=== PATIENT | male | born 1995 | race Caucasian/White ===

== ENCOUNTER 2017-04-14 11:41 | Inpatient (IN) | payer OTHER ==
[~2017-04-14] VITALS: Ht 172.7 cm; Wt 81.4 kg
[2017-04-14 13:14] LABS: HEMATOCRIT 37.8 % (38.0-50.0); HEMOGLOBIN 13.1 G/DL (12.5-16.6); MCH 26.8 PG (29.0-34.0); MCHC 34.7 G/DL (30.0-36.0); MCV 77.3 FL (86-99); PLATELET COUNT 277 K/uL (156-360); RBC DIS.WIDTH-CV 13.2 % (11.8-14.6); RBC DIS.WIDTH-SD 36.7 % (39-53); RED BLOOD COUNT 4.89 M/uL (4.00-5.50); WHITE BLOOD COUNT 13.4 K/uL (4.1-10.2)
[2017-04-14 13:26] LABS: ALBUMIN 3.7 g/dL (3.2-4.8)
[2017-04-14 13:27] LABS: CHLORIDE 100 mEq/L (99-109); POTASSIUM 3.9 mEq/L (3.7-5.4); SODIUM 137 mEq/L (136-147)
[2017-04-14 13:29] LABS: GLUCOSE 107 mg/dL (70-99); TOTAL PROTEIN 6.7 g/dL (6.4-8.3)
[2017-04-14 13:31] LABS: TOTAL BILIRUBIN 0.8 mg/dL (0.0-1.0)
[2017-04-14 13:32] LABS: ALKALINE PHOSPHATASE 79 IU/L (3-129)
[2017-04-14 13:33] LABS: GFR ESTIMATE (CALCULATED) > 59 mL/min/ (58.99-99999)
[2017-04-14 13:34] LABS: AST (GOT) 12 IU/L (2-34); UREA NITROGEN (BUN) 8 mg/dL (9-23)
[2017-04-14 13:35] LABS: ALT (GPT) 14 IU/L (3-49)
[2017-04-14 15:40] LABS: APPEARANCE SL.HAZY ((CLEAR)); BILIRUBIN NEGATIVE; BLOOD NEGATIVE; COLOR YELLOW ((YELLOW)); GLUCOSE (STRIP) NEGATIVE; KETONES 80; LEUKOCYTES NEGATIVE; NITRITE NEGATIVE; PROTEIN (STRIP) 30; SPECIFIC GRAVITY 1.018 (1.000-1.030); UROBILINOGEN 0.2 MG/DL (0.2-1.0)
[2017-04-14 15:42] LABS: BACTERIA RARE /HPF; EPITHELIAL CELLS NONE SEEN /HPF; MUCUS 2+ /LPF; RED BLOOD CELLS 0-5 /HPF (0-5); UCUL ADDED? YES
[2017-04-14 21:23] VITALS: BP 140/70
[2017-04-14 23:48] VITALS: BP 127/68
[2017-04-15 06:18] LABS: HEMATOCRIT 33.9 % (38.0-50.0); HEMOGLOBIN 11.3 G/DL (12.5-16.6); MCHC 33.3 G/DL (30.0-36.0); MCV 77.9 FL (86-99); PLATELET COUNT 230 K/uL (156-360); RBC DIS.WIDTH-SD 37.1 % (39-53); RED BLOOD COUNT 4.35 M/uL (4.00-5.50); WHITE BLOOD COUNT 9.8 K/uL (4.1-10.2)
[2017-04-15 06:39] LABS: CHLORIDE 102 MEQ/L (99-109); GFR ESTIMATE (CALCULATED) > 59 mL/min/ (58.99-99999); GLUCOSE 97 mg/dL (70-99); POTASSIUM 3.9 MEQ/L (3.7-5.4); SODIUM 138 MEQ/L (136-147); UREA NITROGEN (BUN) 8 mg/dL (9-23)
[2017-04-15 08:36] VITALS: BP 123/65
[2017-04-15 09:48] LABS: ERTH.SED.RATE 27 MM/HR (0-15)
[2017-04-15 16:06] VITALS: BP 131/71
[2017-04-16] VITALS: BP 125/71
[2017-04-16 00:04] VITALS: BP 121/65
[2017-04-16 06:44] LABS: HEMOGLOBIN 11.6 G/DL (12.5-16.6); MCH 26.6 PG (29.0-34.0); MCHC 34.1 G/DL (30.0-36.0); PLATELET COUNT 241 K/uL (156-360); RBC DIS.WIDTH-CV 13.1 % (11.8-14.6); RED BLOOD COUNT 4.36 M/uL (4.00-5.50); WHITE BLOOD COUNT 11.3 K/uL (4.1-10.2)
[2017-04-16 07:11] LABS: ALBUMIN 2.8 G/DL (3.2-4.8); CHLORIDE 100 MEQ/L (99-109); CREATININE 0.9 MG/DL (0.6-1.3); GFR ESTIMATE (CALCULATED) > 59 mL/min/ (58.99-99999); GLUCOSE 119 mg/dL (70-99); POTASSIUM 3.9 MEQ/L (3.7-5.4); SODIUM 139 MEQ/L (136-147); UREA NITROGEN (BUN) 4 mg/dL (9-23)
[2017-04-16 07:47] VITALS: BP 127/65
[2017-04-16 16:19] VITALS: BP 129/72
[2017-04-17] VITALS: BP 125/71
[2017-04-17 07:28] VITALS: BP 121/69
[2017-04-17 08:03] LABS: HEMATOCRIT 34.5 % (38.0-50.0); HEMOGLOBIN 11.7 G/DL (12.5-16.6); MCH 26.3 PG (29.0-34.0); MCHC 33.9 G/DL (30.0-36.0); MCV 77.5 FL (86-99); PLATELET COUNT 269 K/uL (156-360); RBC DIS.WIDTH-CV 13.2 % (11.8-14.6); RBC DIS.WIDTH-SD 37.2 % (39-53); RED BLOOD COUNT 4.45 M/uL (4.00-5.50); WHITE BLOOD COUNT 12.5 K/uL (4.1-10.2)
[2017-04-17 08:35] LABS: ABS NEUTROPHIL COUNT 8.2; ANISOCYTOSIS 1+; BAND NEUTROPHILS 33.3 % (0-8.0); EOSINOPHILS 8.3 % (0-5.0); LYMPHOCYTES 7.5 % (15.0-45.0); MICROCYTOSIS 1+; MONOCYTES 18.4 % (0-9.0); PLAT.SUFFICIENCY ADEQUATE; POLYCHROMASIA 1+; SEG.NEUTROPHILS 32.5 % (46.0-76.0)
[2017-04-17 08:36] LABS: ALBUMIN 2.8 G/DL (3.2-4.8); CHLORIDE 99 MEQ/L (99-109); GFR ESTIMATE (CALCULATED) > 59 mL/min/ (58.99-99999); GLUCOSE 103 mg/dL (70-99); PHOSPHORUS 2.7 mg/dL (2.5-4.9); POTASSIUM 3.8 MEQ/L (3.7-5.4); SODIUM 135 MEQ/L (136-147); UREA NITROGEN (BUN) 4 mg/dL (9-23)
[2017-04-17 16:10] VITALS: BP 140/67
[2017-04-18] VITALS: BP 119/64
[2017-04-18 05:57] LABS: HEMATOCRIT 33.2 % (38.0-50.0); HEMOGLOBIN 11.3 G/DL (12.5-16.6); MCH 26.3 PG (29.0-34.0); MCV 77.4 FL (86-99); PLATELET COUNT 252 K/uL (156-360); RBC DIS.WIDTH-CV 13.2 % (11.8-14.6); RBC DIS.WIDTH-SD 36.8 % (39-53); RED BLOOD COUNT 4.29 M/uL (4.00-5.50); WHITE BLOOD COUNT 9.7 K/uL (4.1-10.2)
[2017-04-18 07:49] VITALS: BP 132/69
[2017-04-18 15:21] VITALS: BP 132/69
[2017-04-18 23:55] VITALS: BP 125/61
[2017-04-19 06:09] LABS: HEMATOCRIT 33.7 % (38.0-50.0); HEMOGLOBIN 11.3 G/DL (12.5-16.6); MCH 25.6 PG (29.0-34.0); MCHC 33.5 G/DL (30.0-36.0); MCV 76.2 FL (86-99); NRBC (%) 0.2 /100 WBC (0-0); PLATELET COUNT 292 K/uL (156-360); RBC DIS.WIDTH-CV 13.1 % (11.8-14.6); RBC DIS.WIDTH-SD 35.8 % (39-53); RED BLOOD COUNT 4.42 M/uL (4.00-5.50); WHITE BLOOD COUNT 10.8 K/uL (4.1-10.2)
[2017-04-19 06:33] LABS: ALBUMIN 2.8 G/DL (3.2-4.8); ALKALINE PHOSPHATASE 51 IU/L (3-129); ALT (GPT) 12 IU/L (3-49); AST (GOT) 13 IU/L (2-34); CHLORIDE 97 MEQ/L (99-109); GFR ESTIMATE (CALCULATED) > 59 mL/min/ (58.99-99999); GLUCOSE 114 mg/dL (70-99); POTASSIUM 3.5 MEQ/L (3.7-5.4); SODIUM 136 MEQ/L (136-147); TOTAL BILIRUBIN 0.4 MG/DL (0.0-1.0); TOTAL PROTEIN 5.5 G/DL (6.4-8.3); UREA NITROGEN (BUN) 4 mg/dL (9-23)
[2017-04-19 07:35] VITALS: BP 124/67
[2017-04-19 16:15] VITALS: BP 137/65
[2017-04-19 23:24] VITALS: BP 132/73
[2017-04-20 06:00] LABS: HEMATOCRIT 34.6 % (38.0-50.0); HEMOGLOBIN 11.9 G/DL (12.5-16.6); MCH 26.6 PG (29.0-34.0); MCHC 34.4 G/DL (30.0-36.0); MCV 77.2 FL (86-99); PLATELET COUNT 326 K/uL (156-360); RBC DIS.WIDTH-CV 13.2 % (11.8-14.6); RBC DIS.WIDTH-SD 36.9 % (39-53); RED BLOOD COUNT 4.48 M/uL (4.00-5.50); WHITE BLOOD COUNT 11.6 K/uL (4.1-10.2)
[2017-04-20 06:31] LABS: ALBUMIN 2.9 G/DL (3.2-4.8); CHLORIDE 99 MEQ/L (99-109); CREATININE 0.8 MG/DL (0.6-1.3); GFR ESTIMATE (CALCULATED) > 59 mL/min/ (58.99-99999); GLUCOSE 158 mg/dL (70-99); POTASSIUM 4.4 MEQ/L (3.7-5.4); SODIUM 138 MEQ/L (136-147); UREA NITROGEN (BUN) 6 mg/dL (9-23)
[2017-04-20 07:46] VITALS: BP 127/75
[2017-04-20 16:13] VITALS: BP 127/68
[2017-04-21 00:10] VITALS: BP 126/69
[2017-04-21 07:04] LABS: HEMATOCRIT 33.5 % (38.0-50.0); HEMOGLOBIN 11.1 G/DL (12.5-16.6); MCH 25.6 PG (29.0-34.0); MCHC 33.1 G/DL (30.0-36.0); MCV 77.4 FL (86-99); NRBC (%) 0.2 /100 WBC (0-0); PLATELET COUNT 420 K/uL (156-360); RBC DIS.WIDTH-CV 13.2 % (11.8-14.6); RBC DIS.WIDTH-SD 37.3 % (39-53); RED BLOOD COUNT 4.33 M/uL (4.00-5.50)
[2017-04-21 07:41] LABS: ALBUMIN 2.9 G/DL (3.2-4.8); ALKALINE PHOSPHATASE 54 IU/L (3-129); CHLORIDE 100 MEQ/L (99-109); CREATININE 0.8 MG/DL (0.6-1.3); GFR ESTIMATE (CALCULATED) > 59 mL/min/ (58.99-99999); GLUCOSE 145 mg/dL (70-99); POTASSIUM 4.2 MEQ/L (3.7-5.4); SODIUM 138 MEQ/L (136-147); TOTAL PROTEIN 5.1 G/DL (6.4-8.3); UREA NITROGEN (BUN) 11 mg/dL (9-23)
[2017-04-21 07:52] LABS: ALT (GPT) 27 IU/L (3-49); AST (GOT) 25 IU/L (2-34); TOTAL BILIRUBIN 0.3 MG/DL (0.0-1.0)
[2017-04-21 08:55] VITALS: BP 122/69
[2017-04-21 18:11] VITALS: BP 147/83
[2017-04-21 23:43] VITALS: BP 126/70
[2017-04-22 07:43] LABS: HEMATOCRIT 32.1 % (38.0-50.0); HEMOGLOBIN 10.7 G/DL (12.5-16.6); MCHC 33.3 G/DL (30.0-36.0); MCV 78.1 FL (86-99); NRBC (%) 0.3 /100 WBC (0-0); PLATELET COUNT 380 K/uL (156-360); RBC DIS.WIDTH-CV 13.6 % (11.8-14.6); RBC DIS.WIDTH-SD 38.5 % (39-53); RED BLOOD COUNT 4.11 M/uL (4.00-5.50)
[2017-04-22 08:00] VITALS: BP 125/81
[2017-04-22 08:00] LABS: ALBUMIN 2.8 G/DL (3.2-4.8); CHLORIDE 101 MEQ/L (99-109); CREATININE 0.7 MG/DL (0.6-1.3); GFR ESTIMATE (CALCULATED) > 59 mL/min/ (58.99-99999); GLUCOSE 131 mg/dL (70-99); PHOSPHORUS 4.3 mg/dL (2.5-4.9); POTASSIUM 4.5 MEQ/L (3.7-5.4); SODIUM 139 MEQ/L (136-147); UREA NITROGEN (BUN) 12 mg/dL (9-23)
[2017-04-22 17:19] VITALS: BP 134/74
[2017-04-22 23:56] VITALS: BP 145/84
[2017-04-23 06:51] LABS: HEMATOCRIT 34.3 % (38.0-50.0); HEMOGLOBIN 11.3 G/DL (12.5-16.6); MCH 25.9 PG (29.0-34.0); MCHC 32.9 G/DL (30.0-36.0); MCV 78.7 FL (86-99); NRBC (%) 0.9 /100 WBC (0-0); PLATELET COUNT 435 K/uL (156-360); RBC DIS.WIDTH-CV 13.5 % (11.8-14.6); RBC DIS.WIDTH-SD 38.6 % (39-53); RED BLOOD COUNT 4.36 M/uL (4.00-5.50); WHITE BLOOD COUNT 24.1 K/uL (4.1-10.2)
[2017-04-23 07:12] LABS: CHLORIDE 98 MEQ/L (99-109); CREATININE 0.8 MG/DL (0.6-1.3); GFR ESTIMATE (CALCULATED) > 59 mL/min/ (58.99-99999); PHOSPHORUS 3.7 mg/dL (2.5-4.9); SODIUM 137 MEQ/L (136-147); UREA NITROGEN (BUN) 12 mg/dL (9-23)
[2017-04-23 07:13] LABS: GLUCOSE 95 mg/dL (70-99)
[2017-04-23 08:17] VITALS: BP 130/80
[2017-04-23] MEDS ORDERED: DELZICOL400 M1 PO (09:32)
[2017-04-23] MEDS ORDERED: TYLENOL REGULA325 MG PO (09:32)
[2017-04-23] MEDS ORDERED: PREDNISONE20 MG PO (09:32)
[2017-04-23] MEDS ORDERED: PANTOPRAZOLE SO40 MG PO (09:32)
[2017-04-23] MEDS ORDERED: APRISO0.375 GM PO (11:26)
== END 2017-04-23 12:20 | disposition home or self-care (01) | DRG 392 ==
LOC: EME 11:41 → ENRESERV 19:55 → 5SOUTH 19:55 → EDOF 19:55 → ENRESERV 20:06 → 5SOUTH 21:16
PROVIDERS: Hospitalist; Internal Medicine; Internal Medicine Gastroenterology
DX: K58.0 Irritable bowel syndrome with diarrhea (principal); N39.0 Urinary tract infection, site not specified; K26.9 Duodenal ulcer, unspecified as acute or chronic, without hemorrhage or perforation; R82.71 Bacteriuria; K29.60 Other gastritis without bleeding; K59.00 Constipation, unspecified; E86.0 Dehydration; K21.9 Gastro-esophageal reflux disease without esophagitis; F41.9 Anxiety disorder, unspecified; T38.0X5A Adverse effect of glucocorticoids and synthetic analogues, initial encounter; Z80.9 Family history of malignant neoplasm, unspecified
CPT/HCPCS: 74018; 74177; 80048; 80053; 80069; 81003; 83630; 85025; 85027; 85652; 86140; 87086; 87177; 87493; 87506; 88305; 88342 TC; 99281; 99285; C9113; J0744; J0780; J2060; J2270; J2405; J2765; J2930; J3480; J7030; J7042; S0028; S0030